=== PATIENT | female | born 1985 | race Caucasian/White ===

== ENCOUNTER → 2018-01-08 | Outpatient (CLI) | payer BC | LOC: FIMAGING 14:22 | DX: O26.91 Pregnancy related conditions, unspecified, first trimester (principal); O99.355 Diseases of the nervous system complicating the puerperium; Z3A.12 12 weeks gestation of pregnancy ==

== ENCOUNTER → 2018-03-07 | Outpatient (CLI) | payer BC | LOC: FIMAGING 07:41 | DX: O99.352 Diseases of the nervous system complicating pregnancy, second trimester (principal); G35 Multiple sclerosis; Z3A.20 20 weeks gestation of pregnancy ==

== ENCOUNTER → 2018-05-21 | Outpatient (CLI) | payer BC | LOC: FIMAGING 09:18 | DX: O99.353 Diseases of the nervous system complicating pregnancy, third trimester (principal); O36.63X0 Maternal care for excessive fetal growth, third trimester, not applicable or unspecified; G35 Multiple sclerosis; Z3A.31 31 weeks gestation of pregnancy ==

== ENCOUNTER → 2018-06-25 | Outpatient (CLI) | payer BC | LOC: FIMAGING 13:46 | DX: O99.355 Diseases of the nervous system complicating the puerperium (principal); G35 Multiple sclerosis; Z3A.36 36 weeks gestation of pregnancy ==